=== PATIENT | male | born 1960 | race Caucasian/White ===

== ENCOUNTER 2016-10-06 08:58 | Day surgery (SDC) | payer OTHER ==
[~2016-10-06] VITALS: Ht 182.9 cm; Wt 113.4 kg
[~2016-10-06 08:58] MED LIST: Sodium Chloride LOK Flush 10 mL Syringe IV PRN; fentaNYL-PF 50 mCg/mL 2 mL Inj IVPUSH PRN
[2016-10-06 09:20] VITALS: BP 148/99; PULSE 68; RESP 16; O2SAT 97
[2016-10-06] MEDS: 0.9% Sodium Chloride 1,000 ML IV SCH ×2 (09:28→09:43)
[2016-10-06 10:25] VITALS: BP 147/90; PULSE 68; RESP 14; O2SAT 95
[2016-10-06 10:35] VITALS: BP 141/84; PULSE 65; RESP 14; O2SAT 95
[2016-10-06 10:45] VITALS: BP 137/72; PULSE 64; RESP 16; O2SAT 98
[2016-10-06 10:55] VITALS: BP 155/94; PULSE 71; RESP 16; O2SAT 97
[2016-10-06 11:05] VITALS: BP 144/72; PULSE 73; RESP 16; O2SAT 98
--- NOTE | 2016-10-06 13:28 | ENDO ---
[address] [address] ENDOSCOPY PROCEDURE PATIENT: JOSE E ROQUE : 1960 MR#: [id number] ADMIT: 10/06/2016 JOB ID: [id number] PROCEDURE: Colonoscopy. INDICATION: Screening. ANESTHESIA: Patient's ASA classification is two. Mallampati score is two. MEDICATIONS: 1. Versed 3 mg. 2. Fentanyl 75 mcg. INSTRUMENT USED: PCF-H180AL. PREPARATION QUALITY: Good. PROCEDURE DETAILS: After informed consent was obtained, the patient was brought into the GI suite, where he was placed on oxygen via nasal cannula and monitored with continuous pulse oximeter, telemetry, and blood pressure monitoring. A time-out was performed, then he was placed in the left lateral decubitus position and medications were administered for sedation. Digital rectal exam was performed, which was unremarkable. The colonoscope was then inserted into the rectum and advanced under direct visualization to the cecum, which was identified by the presence of the ileocecal valve and appendiceal orifice. Once the cecum was reached, the colonoscope was withdrawn back into the rectum as the mucosa and lumen were examined. In the rectum, retroflexion was performed. Following retroflexion, the remaining air in the rectum was suctioned and the procedure was completed. FINDINGS: 1. In the transverse colon, there were two polyps ranging in size from 5 mm to 6 mm. Both polyps were sessile and removed with a hot snare. 2. In the descending colon, there was a diminutive polyp that was removed with cold biopsy forceps. 3. In the sigmoid colon, there were five polyps ranging in size from 5 mm to 1 cm. They were removed by a combination of cold biopsy forceps and hot snare. 4. In the rectum, there were three polyps ranging in size from diminutive to 5 mm. They were removed by a combination of cold biopsy forceps and cold snare. IMPRESSION: 1. Two transverse colon polyps. 2. One descending colon polyp. 3. Five sigmoid polyps. 4. Three rectal polyps. RECOMMENDATIONS: 1. Avoid NSAIDs and anticoagulants for 72 hours. 2. Repeat colonoscopy in two years. 3. High-fiber diet. 4. Decreased consumption of red meat. COMPLICATIONS: None. ESTIMATED BLOOD LOSS: Less than 5 mL. CC: Lee Ann Khan DNP
--- NOTE | 2016-10-09 17:16 | PATH ---
SURGICAL PATHOLOGY Attending Physician:Chacorta Gomez CASE STATUS: Signed Out PATIENT NAME: JOSE E ROQUE PID: [id number] : 1960 DATE COLLECTED:10/06/2016 21:51 SPECIMEN: 1: Colon, Biopsy 2: Colon, Biopsy 3: Colon, Biopsy 4: Rectum, Biopsy CLINICAL HISTORY: POLYPS 1). TRANSVERSE COLON POLYPS X2 2). DESCENDING COLON POLYP 3). SIGMOID COLON POLYPS X5 4). RECTAL POLYPS X3 FINAL DIAGNOSIS: 1.TRANSVERSE COLON POLYPS, BIOPSIES: MULTIPLE FRAGMENTS OF TUBULAR ADENOMA. 2.DESCENDING COLON, POLYP, BIOPSY: HYPERPLASTIC POLYP. 3.SIGMOID COLON, POLYPS, BIOPSIES: TUBULAR ADENOMA WITH HIGH-GRADE DYSPLASIA IN 1 FRAGMENT; THE EXCISION APPEARS COMPLETE. 2 TUBULAR ADENOMAS. 4 HYPERPLASTIC POLYPS. SEE COMMENT. 4.RECTUM, POLYPS, BIOPSIES: TUBULAR ADENOMA IN 1 OF 5 FRAGMENTS. HYPERPLASTIC POLYP IN 3 FRAGMENTS. ICD10 code D12.3 D12.5 D12.8 NOTE: As part of routine quality management nurse, Dr. Boo Walker has also reviewed part 3 of this case and agrees with the diagnosis. Dr. Tate discussed preliminary findings with Rossana in Dr. Delgadillo' s office on 10/09/16. GROSS DESCRIPTION: Received are four formalin-filled containers, each labeled with the patient' s name. 1. Received in formalin, labeled with the patient' s name and "transverse colon polyps", are multiple fragments of ibanez, soft tissue ranging in size from 0.1 x 0.1 x 0.1 cm to 0.2 x 0.2 x 0.2 cm. All fragments are totally submitted in cassette 1A. 2. Received in formalin, labeled with the patient' s name and "descending colon polyp", are two fragments of ibanez, soft tissue ranging in size from 0.1 x 0.1 x 0.1 cm to 0.2 x 0.1 x 0.1 cm. All fragments are totally submitted in cassette 2A. 3. Received in formalin, labeled with the patient' s name and "sigmoid colon polyps", are multiple fragments of ibanez, soft tissue ranging in size from 0.1 x 0.1 x 0.1 cm to 0.6 x 0.5 x 0.4 cm. The larger fragments are divided, and all fragments are totally submitted in cassette 3A. 4. Received in formalin, labeled with the patient' s name and "rectal polyps", are multiple fragments of ibanez, soft tissue ranging in size from 0.1 x 0.1 x 0.1 cm to 0.2 x 0.1 x 0.1 cm. All fragments are totally submitted in cassette 4A. ([id number]) MICRO DESCRIPTION: See diagnosis. ICD-9 CODES: CPT CODES: 1: 55172 2: 95986 3: 48172 4: 14370 Electronically Signed Out Alicia Tate MD [facility] [address], [place] [address] Technical component performed at [facility], [address], [place], [address]
== END 2016-10-06 23:59 | disposition home or self-care (01) ==
LOC: END 08:58
PROVIDERS: ATTEND Internal Medicine Gastroenterology
DX: Z12.11 Encounter for screening for malignant neoplasm of colon (principal); D12.3 Benign neoplasm of transverse colon; D12.5 Benign neoplasm of sigmoid colon; D12.8 Benign neoplasm of rectum; K63.5 Polyp of colon; E78.5 Hyperlipidemia, unspecified; G47.30 Sleep apnea, unspecified
CPT/HCPCS: 45380; 45385; 99153; G0500; J2250; J3010; J7030

== ENCOUNTER 2017-01-19 00:21 | Day surgery (SDC) | payer OTHER ==
[~2017-01-19] VITALS: Ht 182.9 cm; Wt 113.4 kg
[~2017-01-19 00:21] MED LIST changes: -Sodium Chloride LOK Flush 10 mL Syringe IV PRN; -fentaNYL-PF 50 mCg/mL 2 mL Inj IVPUSH PRN; +no medications
[2017-01-19] MEDS ORDERED: 0.9% Sodium Chloride 1,000 ML IV SCH (06:00)
[2017-01-19] MEDS ORDERED: fentaNYL-PF 50 mCg/mL 2 mL Inj IVPUSH PRN (06:00)
[2017-01-19] MEDS ORDERED: Sodium Chloride LOK Flush 10 mL Syringe IV PRN (06:00)
[2017-01-19 07:39] VITALS: BP 156/95; PULSE 63; RESP 17; O2SAT 98
[2017-01-19 08:21] VITALS: BP 134/92; PULSE 67; RESP 16; O2SAT 94
[2017-01-19 08:31] VITALS: BP 117/81; PULSE 76; RESP 16; O2SAT 95
[2017-01-19 08:41] VITALS: BP 146/97; PULSE 72; RESP 16; O2SAT 97
--- NOTE | 2017-01-19 08:41 | ENDO ---
[address] [address] ENDOSCOPY PROCEDURE PATIENT: JOSE E ROQUE : 1960 MR#: [id number] ADMIT: 01/19/2017 JOB ID: [id number] DATE OF SURGERY: 01/19/2017 PROCEDURE: Colonoscopy. INDICATION: Patient with a history of a high-grade dysplastic adenomatous polyp in the sigmoid colon. The patient's ASA classification is 1. Mallampati score is 2. MEDICATIONS: 1. Versed 5 mg. 2. Fentanyl 100 mcg. INSTRUMENT USED: PCF-H180AL. PREPARATION QUALITY: Good. PROCEDURE DETAILS: After informed consent was obtained, the patient was brought into the GI suite, where he was placed on oxygen via nasal cannula, and monitored with continuous pulse oximeter, telemetry, and blood pressure monitoring. A time-out was performed. Then, he was placed in the left lateral decubitus position, and medications were administered for sedation. Digital rectal exam was performed and was unremarkable. The colonoscope was then inserted into the rectum and advanced under direct visualization to the cecum, which was identified by the presence of the ileocecal valve and appendiceal orifice. Once the cecum was reached, the colonoscope was withdrawn back into the rectum, as the mucosa and lumen were examined. In the rectum, retroflexion was performed. Following retroflexion, the remaining air in the rectum was suctioned, and procedure was completed. FINDINGS: In the ascending colon, there were an approximately 1 cm pedunculated polyp. That was removed with a hot snare. RECOMMENDATIONS: 1. Avoid NSAIDs and anticoagulants for the next 72 hours. 2. Repeat colonoscopy in one year. COMPLICATIONS: None. ESTIMATED BLOOD LOSS: Zero. CC: Dr. La Khan
--- NOTE | 2017-01-22 16:50 | PATH ---
SURGICAL PATHOLOGY Attending Physician:Chacorta Gomez CASE STATUS: Signed Out PATIENT NAME: JOSE E ROQUE PID: [id number] : 1960 DATE COLLECTED:01/19/2017 22:27 SPECIMEN: Colon, Polyp CLINICAL HISTORY: 1). ASCENDING POLYP X1 FINAL DIAGNOSIS: 1.ASCENDING COLON POLYP: TUBULAR ADENOMA. ICD10 D12.2 GROSS DESCRIPTION: The specimen is received in formalin, labeled with the patient's name, sublabeled as ascending polyp and consists of a ibanez, glistening, rubbery, sessile polyp (1.0 x 0.8 x 0.8 cm). Ink code: black-resection margin. Section code: (A) polyp, bisected. Specimen entirely submitted. ([id number]) MICRO DESCRIPTION: See diagnosis. ICD-9 CODES: CPT CODES: 1: 20437 Electronically Signed Out Allie Phan MD [facility] [address], [place] [address] Technical component performed at [facility], [facility] [address], [place], [address]
== END 2017-01-19 23:59 | disposition home or self-care (01) ==
LOC: END 00:21
PROVIDERS: ATTEND Internal Medicine Gastroenterology
DX: Z12.11 Encounter for screening for malignant neoplasm of colon (principal); Z86.010 Personal history of colon polyps; D12.2 Benign neoplasm of ascending colon; L82.1 Other seborrheic keratosis
CPT/HCPCS: 45385; G0500; J2250; J3010; J7030